=== PATIENT | female | born 1995 | race African-American/Black ===

== ENCOUNTER 2019-11-17 20:46 | Emergency (ER) | payer MEDICAID ==
[~2019-11-17] VITALS: Ht 165.1 cm; Wt 85.0 kg
[2019-11-17] MEDS ORDERED: ALBUTEROL (0.5%) 2.5MG/0.5ML NEB HHN ONE (21:00)
[2019-11-17 22:52] VITALS: BP 115/69
== END 2019-11-17 22:54 | disposition home or self-care (01) ==
LOC: ER 20:46
DX: J45.901 Unspecified asthma with (acute) exacerbation (principal); Z98.890 Other specified postprocedural states
CPT/HCPCS: 94640; 99283; Z7610

== ENCOUNTER 2019-12-10 15:19 | Emergency (ER) | payer MEDICAID ==
[~2019-12-10] VITALS: Ht 165.1 cm; Wt 79.8 kg
[2019-12-10] MEDS ORDERED: SODIUM CHLORIDE 0.9% 1,000 ML IV ONE ×2 (15:33→17:45)
[2019-12-10 15:59] LABS: BASOPHILS % 0.1 % (0.0-2.0); HEMATOCRIT. 39.7 % (36.0-48.0); HEMOGLOBIN. 13.6 g/dL (12.0-16.0); MEAN CORPUSCULAR HEMOGLOBIN 28.3 pg (28.0-32.0); MEAN CORPUSCULAR VOLUME 82.5 fL (81.0-99.0); MEAN PLATELET VOLUME 9.6 fl (7.4-10.4); NEUTROPHILS % 87.9 % (40.0-76.0); PLATELET 296 x1000/uL (130-400); RED BLOOD CELL COUNT 4.81 mill/uL (4.2-5.4); RED CELL DISTRIBUTION WIDTH 16.7 % (11.6-14.6)
[2019-12-10 16:04] LABS: CHLORIDE 106 mEq/L (98-107)
[2019-12-10 16:28] LABS: B-HCG QUANTITATIVE 156155 mIU/mL (<3)
[2019-12-10] MEDS ORDERED: ONDANSETRON HCL 4MG/2ML INJ IV ONE (17:45)
[2019-12-10 19:04] LABS: CLARITY URINE CLOUDY (CLEAR); COLOR URINE YELLOW (YELLOW); KETONES URINE 4+ (NEGATIVE); LEUKOCYTE ESTERASE URINE TRACE (NEGATIVE); NITRITE URINE NEGATIVE (NEGATIVE); OCCULT BLOOD URINE 3+ (NEGATIVE); PROTEIN URINE 1+ (NEGATIVE); SPECIFIC GRAVITY URINE 1.028 (1.005-1.030)
[2019-12-10] MEDS ORDERED: CEFTRIAXONE 1 G PREMIX 50 ML IV ONE (19:15)
[2019-12-10] MEDS ORDERED: METOCLOPRAMIDE HCL 10MG/2ML VIAL IV ONE (19:30)
[2019-12-10 20:22] VITALS: BP 138/69
== END 2019-12-10 20:23 | disposition home or self-care (01) ==
LOC: ER 15:19 → CANBEDREQ 12-12 11:11
DX: O26.891 Other specified pregnancy related conditions, first trimester (principal); O99.511 Diseases of the respiratory system complicating pregnancy, first trimester; R55 Syncope and collapse; O23.31 Infections of other parts of urinary tract in pregnancy, first trimester; Z3A.09 9 weeks gestation of pregnancy; Z98.890 Other specified postprocedural states
CPT/HCPCS: 36415; 76801; 76817; 80053; 81003; 81025; 84702; 85025; 86850; 86900; 86901; 96361; 96365; 96375; 99285; J0696; J2405; J2765; J7030

== ENCOUNTER 2019-12-15 22:58 | Emergency (ER) | payer MEDICAID ==
[~2019-12-15] VITALS: Ht 165.1 cm; Wt 80.0 kg
[2019-12-16] MEDS ORDERED: SODIUM CHLORIDE 0.9% 1,000 ML IV ONE (00:01)
[2019-12-16 00:14] LABS: HEMATOCRIT. 39.5 % (36.0-48.0); HEMOGLOBIN. 14.2 g/dL (12.0-16.0); MEAN CORPUSCULAR HEMOGLOBIN 28.9 pg (28.0-32.0); MEAN CORPUSCULAR VOLUME 80.6 fL (81.0-99.0); MEAN PLATELET VOLUME 9.6 fl (7.4-10.4); PLATELET 303 x1000/uL (130-400); RED CELL DISTRIBUTION WIDTH 16.2 % (11.6-14.6)
[2019-12-16] MEDS ORDERED: ONDANSETRON HCL 4MG/2ML INJ IV ONE (00:15)
[2019-12-16] MEDS ORDERED: FAMOTIDINE 20MG/2ML VIAL IV ONE (00:15)
[2019-12-16 00:20] LABS: CHLORIDE 98 mEq/L (98-107)
[2019-12-16 00:43] LABS: B-HCG QUANTITATIVE 148852 mIU/mL (<3)
[2019-12-16] MEDS ORDERED: POTASSIUM CHLORIDE 20MEQ TABLET SR PO SCH (02:00)
[2019-12-16] MEDS ORDERED: PYRIDOXINE HCL 50MG TABLET PO SCH (03:00)
[2019-12-16] MEDS ORDERED: POTASSIUM CHLORIDE INJ 40 MEQ in DEXT 5% WATER 250 ML IV SCH (03:00)
[2019-12-16 06:03] LABS: PLATELET ESTIMATE NORMAL
[2019-12-16 06:37] VITALS: BP 110/71
== END 2019-12-16 06:37 | disposition home or self-care (01) ==
LOC: ER 22:58
DX: O21.0 Mild hyperemesis gravidarum (principal); O26.891 Other specified pregnancy related conditions, first trimester; E87.6 Hypokalemia; J45.909 Unspecified asthma, uncomplicated; Z98.890 Other specified postprocedural states; Z3A.11 11 weeks gestation of pregnancy
CPT/HCPCS: 36415; 80053; 84702; 85025; 86850; 86900; 86901; 96361; 96365; 96366; 96375; 99285; J2405; J3480; J3490; J7030; J7060

== ENCOUNTER 2020-01-08 22:01 | Emergency (ER) | payer MEDICAID ==
[~2020-01-08] VITALS: Ht 165.1 cm; Wt 73.5 kg
[2020-01-08 22:14] VITALS: BP 113/82
[2020-01-08] MEDS ORDERED: SODIUM CHLORIDE 0.9% 1,000 ML IV ONE (23:32)
[2020-01-08] MEDS ORDERED: METOCLOPRAMIDE HCL 10MG/2ML VIAL IV ONE (23:45)
[2020-01-09 00:08] LABS: BASOPHILS % 0.3 % (0.0-2.0); HEMATOCRIT. 35.8 % (36.0-48.0); HEMOGLOBIN. 12.7 g/dL (12.0-16.0); LYMPHOCYTES % 24.5 % (20.0-50.0); MEAN CORPUSCULAR HEMOGLOBIN 29.3 pg (28.0-32.0); MEAN CORPUSCULAR VOLUME 82.6 fL (81.0-99.0); MEAN PLATELET VOLUME 9.4 fl (7.4-10.4); MONOCYTES % 7.9 % (2.0-8.0); NEUTROPHILS % 67.3 % (40.0-76.0); PLATELET 296 x1000/uL (130-400); RED BLOOD CELL COUNT 4.33 mill/uL (4.2-5.4); RED CELL DISTRIBUTION WIDTH 16.7 % (11.6-14.6)
[2020-01-09 00:12] LABS: CHLORIDE 104 mEq/L (98-107)
[2020-01-09 01:04] LABS: CLARITY URINE CLEAR (CLEAR); COLOR URINE DARK YELLOW (YELLOW); KETONES URINE 4+ (NEGATIVE); LEUKOCYTE ESTERASE URINE 1+ (NEGATIVE); NITRITE URINE POSITIVE (NEGATIVE); OCCULT BLOOD URINE NEGATIVE (NEGATIVE); PH URINE 5.5 (4.5-8.0); PROTEIN URINE 1+ (NEGATIVE); SPECIFIC GRAVITY URINE 1.027 (1.005-1.030)
== END 2020-01-09 02:19 | disposition home or self-care (01) ==
LOC: ER 22:09
DX: O23.31 Infections of other parts of urinary tract in pregnancy, first trimester (principal); O99.511 Diseases of the respiratory system complicating pregnancy, first trimester; Z3A.14 14 weeks gestation of pregnancy; Z98.890 Other specified postprocedural states
CPT/HCPCS: 36415; 80053; 81003; 83690; 84702; 85025; 96361; 96374; 99283; J2765; J7030

== ENCOUNTER 2020-01-12 22:14 | Emergency (ER) | payer MEDICAID ==
[~2020-01-12] VITALS: Ht 165.1 cm; Wt 74.0 kg
[2020-01-12] MEDS ORDERED: SODIUM CHLORIDE 0.9% 1,000 ML IV ONE (23:13)
[2020-01-12] MEDS ORDERED: ACETAMINOPHEN 325MG TABLET PO PRN (23:15)
[2020-01-12] MEDS ORDERED: ACETAMINOPHEN 500MG TABLET ONE (23:28)
[2020-01-12 23:41] LABS: HEMATOCRIT. 34.5 % (36.0-48.0); HEMOGLOBIN. 12.2 g/dL (12.0-16.0); MEAN CORPUSCULAR HEMOGLOBIN 29.1 pg (28.0-32.0); MEAN CORPUSCULAR VOLUME 82.1 fL (81.0-99.0); MEAN PLATELET VOLUME 9.8 fl (7.4-10.4); PLATELET 297 x1000/uL (130-400); RED CELL DISTRIBUTION WIDTH 16.1 % (11.6-14.6)
[2020-01-12 23:44] LABS: CHLORIDE 97 mEq/L (98-107)
[2020-01-13 00:07] LABS: B-HCG QUANTITATIVE 60169 mIU/mL (<3)
[2020-01-13] MEDS ORDERED: POTASSIUM CHLORIDE INJ 40 MEQ in DEXT 5% WATER 250 ML IV NR (00:15)
[2020-01-13] MEDS ORDERED: ACETAMINOPHEN 500MG TABLET PO PRN (00:15)
[2020-01-13 01:53] LABS: CLARITY URINE CLOUDY (CLEAR); COLOR URINE DARK YELLOW (YELLOW); KETONES URINE 4+ (NEGATIVE); LEUKOCYTE ESTERASE URINE 2+ (NEGATIVE); NITRITE URINE POSITIVE (NEGATIVE); OCCULT BLOOD URINE NEGATIVE (NEGATIVE); PROTEIN URINE 1+ (NEGATIVE); SPECIFIC GRAVITY URINE 1.023 (1.005-1.030)
[2020-01-13 02:07] LABS: *AMPHETAMINES SCREEN URINE NEGATIVE (NEGATIVE); *BARBITURATES SCREEN URINE NEGATIVE (NEGATIVE); *BENZODIAZEPINES SCREEN URINE NEGATIVE (NEGATIVE); *COCAINE SCREEN URINE NEGATIVE (NEGATIVE); METHADONE URINE SCREEN NEGATIVE (NEGATIVE); OPIATES URINE SCREEN NEGATIVE (NEGATIVE); PHENCYCLIDINE URINE SCREEN NEGATIVE (NEGATIVE)
[2020-01-13 02:09] LABS: CANNABINOID URINE SCREEN PRESUMTIVE POSITIVE (NEGATIVE)
[2020-01-13 05:41] LABS: PLATELET ESTIMATE NORMAL
[2020-01-13 06:49] VITALS: BP 100/62
== END 2020-01-13 07:03 | disposition home or self-care (01) ==
LOC: ER 22:14
DX: O20.0 Threatened abortion (principal); O26.892 Other specified pregnancy related conditions, second trimester; E87.6 Hypokalemia; J45.909 Unspecified asthma, uncomplicated; Z3A.15 15 weeks gestation of pregnancy; Z98.890 Other specified postprocedural states
CPT/HCPCS: 36415; 76805; 80053; 80305; 81003; 84702; 85025; 86850; 86900; 86901; 96365; 96366; 99285; J3480; J7030; J7060

== ENCOUNTER 2021-10-12 08:05 | Emergency (ER) | payer MEDICAID, OTHER ==
[~2021-10-12] VITALS: Ht 165.1 cm; Wt 85.0 kg
[2021-10-12] MEDS ORDERED: METOCLOPRAMIDE HCL 10MG/2ML VIAL IV ONE ×2 (10:00→13:00)
[2021-10-12] MEDS ORDERED: MORPHINE SULFATE 4 MG/ML CPJ (NOT FOR IM USE) IV STA (10:11)
[2021-10-12 10:25] LABS: HEMATOCRIT. 32.8 % (36.0-48.0); HEMOGLOBIN. 10.7 g/dL (12.0-16.0); LYMPHOCYTES % 9.9 % (20.0-50.0); MEAN CORPUSCULAR HEMOGLOBIN 24.7 pg (28.0-32.0); MEAN CORPUSCULAR VOLUME 75.6 fL (81.0-99.0); MEAN PLATELET VOLUME 10.5 fl (7.4-10.4); NEUTROPHILS % 87.1 % (40.0-76.0); PLATELET 318 x1000/uL (130-400); RED BLOOD CELL COUNT 4.34 mill/uL (4.2-5.4); RED CELL DISTRIBUTION WIDTH 15.5 % (11.6-14.6)
[2021-10-12 10:29] LABS: CHLORIDE 111 mEq/L (98-107)
[2021-10-12 10:33] LABS: ETHANOL BLOOD < 10 mg/dL
[2021-10-12 10:52] LABS: HCG SCREEN NEGATIVE
[2021-10-12] MEDS ORDERED: SODIUM CHLORIDE 0.9% 1,000 ML IV ONE (13:00)
[2021-10-12] MEDS ORDERED: KETOROLAC 15MG/ML VIAL IV ONE (13:00)
[2021-10-12 13:45] LABS: CLARITY URINE CLEAR (CLEAR); COLOR URINE YELLOW (YELLOW); KETONES URINE 3+ (NEGATIVE); LEUKOCYTE ESTERASE URINE TRACE (NEGATIVE); NITRITE URINE NEGATIVE (NEGATIVE); OCCULT BLOOD URINE NEGATIVE (NEGATIVE); PROTEIN URINE 1+ (NEGATIVE); SPECIFIC GRAVITY URINE 1.031 (1.005-1.030)
[2021-10-12 13:53] LABS: *BARBITURATES SCREEN URINE NEGATIVE (NEGATIVE); *BENZODIAZEPINES SCREEN URINE NEGATIVE (NEGATIVE); *COCAINE SCREEN URINE NEGATIVE (NEGATIVE)
[2021-10-12 13:54] LABS: *AMPHETAMINES SCREEN URINE NEGATIVE (NEGATIVE); METHADONE URINE SCREEN NEGATIVE (NEGATIVE); PHENCYCLIDINE URINE SCREEN NEGATIVE (NEGATIVE)
[2021-10-12 13:55] LABS: CANNABINOID URINE SCREEN PRESUMTIVE POSITIVE (NEGATIVE); OPIATES URINE SCREEN PRESUMTIVE POSITIVE (NEGATIVE)
[2021-10-12 15:51] VITALS: BP 127/82
== END 2021-10-12 15:54 | disposition home or self-care (01) ==
LOC: ER 08:54
DX: R10.33 Periumbilical pain (principal); R51.9 Headache, unspecified; R11.2 Nausea with vomiting, unspecified; J45.909 Unspecified asthma, uncomplicated; Z98.890 Other specified postprocedural states
CPT/HCPCS: 36415; 74176; 80053; 80305; 80320; 81003; 83690; 84703; 85025; 93005; 96361; 96374; 96375; 96376; 99285; J1885; J2270; J2765; J7030; G0480

== ENCOUNTER 2022-02-09 03:44 | Emergency (ER) | payer MEDICAID, OTHER ==
[~2022-02-09] VITALS: Ht 175.3 cm; Wt 86.0 kg
[2022-02-09] MEDS ORDERED: IBUPROFEN 400MG TABLET PO ONE (05:30)
[2022-02-09 06:01] LABS: HEMOGLOBIN. 9.7 g/dL (12.0-16.0); MEAN CORPUSCULAR HEMOGLOBIN 23.1 pg (28.0-32.0); MEAN CORPUSCULAR VOLUME 73.7 fL (81.0-99.0); MEAN PLATELET VOLUME 9.4 fl (7.4-10.4); PLATELET 327 x1000/uL (130-400); RED CELL DISTRIBUTION WIDTH 16.6 % (11.6-14.6)
[2022-02-09 06:10] LABS: CHLORIDE 109 mEq/L (98-107)
[2022-02-09] MEDS ORDERED: FAMOTIDINE 20MG/2ML VIAL IV ONE (06:30)
[2022-02-09] MEDS ORDERED: METHYLPREDNISOLONE SOD SUCC 125 MG/2 ML VIAL IV ONE (06:30)
[2022-02-09] MEDS ORDERED: DIPHENHYDRAMINE 50MG/ML VIAL IV ONE (06:30)
[2022-02-09 06:36] LABS: PLATELET ESTIMATE NORMAL
[2022-02-09] MEDS ORDERED: KETOROLAC 30MG/ML VIAL IV ONE (07:30)
[2022-02-09] MEDS ORDERED: TOPUD PO ×2 (08:10)
[2022-02-09] MEDS ORDERED: DIPH25CA83 PO (08:21)
[2022-02-09] MEDS ORDERED: TRAM50TA3 PO (08:22)
[2022-02-09 08:48] VITALS: BP 12/69
== END 2022-02-09 08:51 | disposition home or self-care (01) ==
LOC: ER 03:44
DX: T78.40XA Allergy, unspecified, initial encounter (principal); J45.909 Unspecified asthma, uncomplicated; Z98.890 Other specified postprocedural states; Z88.6 Allergy status to analgesic agent; X58.XXXA Exposure to other specified factors, initial encounter
CPT/HCPCS: 36415; 80053; 85025; 87070; 87430; 93005; 96374; 96375; 99284; J1200; J1885; J2930; J3490

== ENCOUNTER 2022-10-03 21:20 | Emergency (ER) | payer MEDICAID, OTHER ==
[~2022-10-03] VITALS: Ht 160 cm; Wt 78.0 kg
[~2022-10-03 21:20] MED LIST: DIPH25CA83 PO; TRAM50TA3 PO
[2022-10-04 04:38] LABS: CLARITY URINE CLOUDY (CLEAR); COLOR URINE DARK YELLOW (YELLOW); KETONES URINE 2+ (NEGATIVE); LEUKOCYTE ESTERASE URINE 1+ (NEGATIVE); NITRITE URINE NEGATIVE (NEGATIVE); OCCULT BLOOD URINE NEGATIVE (NEGATIVE); PH URINE 5.5 (4.5-8.0); PROTEIN URINE 1+ (NEGATIVE)
[2022-10-04 04:38] LABS: BASOPHILS % 0.1 % (0.0-2.0); EOSINOPHILS % 4.4 % (0.0-5.0); HEMATOCRIT. 32.9 % (36.0-48.0); HEMOGLOBIN. 10.5 g/dL (12.0-16.0); LYMPHOCYTES % 32.2 % (20.0-50.0); MEAN CORPUSCULAR HEMOGLOBIN 25.1 pg (28.0-32.0); MEAN CORPUSCULAR VOLUME 78.6 fL (81.0-99.0); MEAN PLATELET VOLUME 9.6 fl (7.4-10.4); MONOCYTES % 5.2 % (2.0-8.0); NEUTROPHILS % 58.1 % (40.0-76.0); PLATELET 248 x1000/uL (130-400); RED BLOOD CELL COUNT 4.18 mill/uL (4.2-5.4); RED CELL DISTRIBUTION WIDTH 17.9 % (11.6-14.6)
[2022-10-04 05:11] LABS: CHLORIDE 110 mEq/L (98-107)
[2022-10-04] MEDS ORDERED: NITR-87 MT (05:21)
[2022-10-04] MEDS ORDERED: CEFAZOLIN 1000MG PREMIX 50 ML IV NR (05:30)
[2022-10-04] MEDS ORDERED: SODIUM CHLORIDE 0.9% 1,000 ML IV ONE (05:30)
[2022-10-04 10:10] VITALS: BP 89/36
== END 2022-10-04 10:54 | disposition home or self-care (01) ==
LOC: ER 21:20
DX: O23.42 Unspecified infection of urinary tract in pregnancy, second trimester (principal); N39.0 Urinary tract infection, site not specified; Z3A.15 15 weeks gestation of pregnancy
CPT/HCPCS: 36415; 76805; 80048; 81003; 85025; 86850; 86900; 86901; 96361; 96365; 99285; J0690; J7030; Z7610